=== PATIENT | female | born 1980 | race Caucasian/White ===

== ENCOUNTER 2022-02-11 13:27 | Emergency (ER) | payer OTHER ==
[2022-02-11 13:35] VITALS: BP 132/95; PULSE 78; RESP 18; TEMP 98; BMI 23.3
[2022-02-11] MEDS ORDERED: ACETAMINOPHEN 500 MG TABLET (FP) PO ONE (14:34)
[2022-02-11] MEDS ORDERED: ACETAMINOPHEN 500 MG TABLET (FP) ONE (14:59)
[2022-02-11] MEDS ORDERED: BACITRACIN 15 GM TUBE TOPICAL OINTMENT TP ONE (15:04)
[2022-02-11] MEDS ORDERED: BACITRACIN 15 GM TUBE TOPICAL OINTMENT ONE (15:05)
[2022-02-11 15:26] LABS: BASO % 1.1 % (0-2.0); EOS % 1.5 % (0-4.5); HEMATOCRIT 42.1 % (32.4-45.2); HEMOGLOBIN 14.5 GM/dL (10.7-15.3); LYMPH % 23.2 % (8-40); MCH 32.4 pg (25.7-33.7); MCHC 34.3 g/dl (32.0-36.0); MEAN CELL VOLUME 94.5 fl (80-96); MEAN PLT VOLUME 8.5 fl (7.5-11.1); MONO % 7.9 % (3.8-10.2); NEUT % 66.3 % (42.8-82.8); PLATELET COUNT 312 10^3/uL (134-434); RBC 4.46 M/mm3 (3.60-5.2); RDW 14.4 % (11.6-15.6)
[2022-02-11 15:36] LABS: CALCIUM 10.2 mg/dL (8.5-10.1)
[2022-02-11 15:37] LABS: ALBUMIN 4.7 g/dl (3.4-5.0)
[2022-02-11 15:40] LABS: CREATININE 0.7 mg/dL (0.55-1.3)
[2022-02-11 15:42] LABS: BILIRUBIN,TOTAL 0.5 mg/dL (0.2-1); TOT PROT 8.8 g/dl (6.4-8.2)
[2022-02-11 16:47] LABS: HIV INTERPRETATION NEGATIVE (NEGATIVE)
[2022-02-11] MEDS ORDERED: SULFAMETHOXAZOLE/TRIMETHOPRIM 800MG/160MG D.S. TABLET PO ONE (17:43)
[2022-02-11] MEDS ORDERED: SULFAMETHOXAZOLE/TRIMETHOPRIM 800MG/160MG D.S. TABLET ONE (17:44)
== END 2022-02-11 17:56 | disposition home or self-care (01) ==
LOC: JERFT 13:27
DX: S00.83XA Contusion of other part of head, initial encounter (principal); S50.812A Abrasion of left forearm, initial encounter; S00.81XA Abrasion of other part of head, initial encounter; Y04.0XXA Assault by unarmed brawl or fight, initial encounter
CPT/HCPCS: 36415; 70450-TC; 80053; 85025; 86709; 86803; 87340; 87389; 87517; 99284-25